=== PATIENT | female | born 1945 | race Two or more races ===

== ENCOUNTER 2019-05-14 07:26 | Outpatient (CLI) | payer OTHER | END 2019-05-14 07:33 | disposition home or self-care (01) | LOC: SONOGRAMA 07:26 | DX: E04.1 Nontoxic single thyroid nodule (principal) ==

== ENCOUNTER 2025-09-14 16:20 | Emergency (ER) | payer OTHER ==
[~2025-09-14] VITALS: Ht 162.6 cm; Wt 90.7 kg
[2025-09-14] MEDS ORDERED: INDAPAMIDE1.25 MG PO (17:21)
[2025-09-14] MEDS ORDERED: LOVAZA1 GM PO (17:21)
[2025-09-14] MEDS ORDERED: ATORVASTATIN CA10 MG PO (17:22)
[2025-09-14] MEDS ORDERED: 0.9 % SODIUM CHLORIDE 1,000 ML IV SCH (17:30)
[2025-09-14] MEDS ORDERED: LABETALOL HCL 20MG/4ML SYRINGE IV ONE (17:30)
[2025-09-14] MEDS ORDERED: ACETAMINOPHEN 500 MG GEL..CAP PO ONE ×2 (17:45→18:54)
[2025-09-14] MEDS ORDERED: LABETALOL HCL 100 MG/20 ML ML ONE (18:54)
[2025-09-14 19:16] LABS: BASO % 0.7 % (0.1-1.2); EOS # 0.06 (0.04-0.54); EOS % 0.9 % (0.7-7.0); LYMPH # 1.37 (1.18-3.74); LYMPH % 20.5 % (19.3-53.1); MEAN PLATELET VOLUME 8.60 fl (9.4-12.4); MONO # 0.60 (0.24-0.82); MONO % 9.0 % (4.7-12.5); NEUT # 4.58 (1.56-6.13); NEUT % 68.5 % (34.0-71.1); RED CELL DISTRIBUTION WIDTH 12.9 % (11.6-14.4)
[2025-09-14 19:31] LABS: URINE APPEARANCE Clear; URINE BILIRRUBIN Negative (NEGATIVE); URINE BLOOD Small; URINE COLOR Yellow; URINE GLUCOSE Negative (NEGATIVE); URINE KETONE Negative (NEGATIVE); URINE LEUKOCYTE Moderate; URINE NITRATE Negative; URINE PROTEIN Negative (NEGATIVE); URINE UROBILINOGEN 0.2 E.U./dl
[2025-09-14 19:35] LABS: URINE BACTERIA 30.8 uL (0.0-1933); URINE EPITHELIAL CELLS 5.9 uL (0.0-38.8); URINE RBC 26.0 uL (0.0-20.8); URINE WBC 47.6 uL (0.0-23.2)
[2025-09-14 19:36] LABS: INR 0.99
[2025-09-14 19:38] LABS: URINE CAST 0.00 uL (0.0-1.40)
[2025-09-14 19:39] LABS: ALT/SGPT 33.0 U/L (12-78); AST/SGOT 19.0 U/L (15-37); BILIRUBIN TOTAL 0.3 mg/dL (0.3-1.2); BUN CREA RATIO 25.0 (7.0-25.0); CREATININE SERUM 0.71 mg/dL (0.55-1.02); GFR 79.82; GLOBULINA 4.0 G/DL (2.4-3.5); GLUCOSE FASTING 129.0 mg/dL (65-100); OSMOLALITY SERUM 285.0 MOSM/KG (275-295)
[2025-09-14] MEDS ORDERED: ANTIVERT25 M2 PO (21:42)
== END 2025-09-14 21:40 | disposition home or self-care (01) ==
LOC: ER 16:20
PROVIDERS: General Practice
DX: R55 Syncope and collapse (principal); R42 Dizziness and giddiness; I10 Essential (primary) hypertension; E78.49 Other hyperlipidemia
CPT/HCPCS: 36415; 70450; 93005; 96365; 96366; 99284; J3490; J7030